=== PATIENT | male | born 1965 | race Caucasian/White ===

== ENCOUNTER → 2016-12-01 | Outpatient (CLI) | payer BC ==
[~2016-12-01] MED LIST: ASPCH81X PO; OMEP20CA59 PO; PROP10TA7 PO; SIMV10TA5 PO
--- NOTE | 2016-12-01 10:05 | DIAGNOSTIC IMAGING REPORT ---
RIGHT KNEE 4 VIEWS; LEFT KNEE 4 VIEWS CLINICAL HISTORY: Bilateral knee pain. FINDINGS: An AP standing view of both knees, a sunrise view of both knees, a tunnel view of both knees, with lateral views of the right and left knee are compared to radiographs of the right knee dated 09/04/2015. The skeletal structures appear osteopenic. No fracture is seen. Right knee: There is mild to moderate tricompartmental degenerative joint space narrowing, greatest in the medial and patellofemoral compartments. There are tiny marginal osteophytes as well as patellar enthesophytes. No osteochondral defect is identified on the tunnel view. There is a new sclerotic lesion within the medial tibial metaphysis which measures up to 4.2 cm. No joint effusion is identified. Mild prepatellar soft soft tissue swelling is noted. A calcified fabella is incidentally noted. Left knee: There is mild tricompartmental degenerative joint space narrowing of the left knee, greatest the medial and patellofemoral compartments. There are tiny patellar enthesophytes. No osteochondral defect is seen on the tunnel view. There is no joint effusion. The overlying soft tissues are within normal limits. IMPRESSION: 1. No acute bony abnormality is seen in either knee. 2. Mild arthritic change as above, right greater than left. 3. There is a new 4.1 cm sclerotic lesion in the right proximal tibial metaphysis. This is indeterminant but new from 09/04/2015. This is likely on a postoperative basis. Clinical correlation will be essential. Electronically signed by: Low Dc M.D. 12/01/2016 10:03 AM Dictated Date/Time: 12/01/2016 9:59 AM
== END | disposition home or self-care (01) ==
LOC: C.RDSM 07:25
PROVIDERS: ATTEND Physical Medicine & Rehabilitation Sports Medicine
DX: R52 Pain, unspecified (principal); M89.9 Disorder of bone, unspecified

== ENCOUNTER → 2017-02-26 | Outpatient (CLI) | payer OTHER, BC ==
--- NOTE | 2017-02-26 11:37 | DIAGNOSTIC IMAGING REPORT ---
PA CHEST WITH LEFT-SIDED RIB SERIES CLINICAL HISTORY: Left chest wall pain. FINDINGS: A PA chest radiograph with 4 additional views from a left-sided rib series are obtained. No prior studies are available for comparison at the time of dictation. The cardiomediastinal silhouette is unremarkable. There is mild bibasilar atelectasis. The lungs and pleural spaces are otherwise clear. No pneumothorax is seen. Question nondistracted left anterior seventh and eighth rib fractures on the rib series. The remainder of the bony thorax is grossly intact. IMPRESSION: 1. The lungs are clear. 2. Minimal contour irregularity is suggested in the left anterior 7th and 8th ribs on the rib series. Nondistracted fractures are not excluded. Correlate clinically for point tenderness. Electronically signed by: Low Dc M.D. 02/26/2017 11:35 AM Dictated Date/Time: 02/26/2017 11:32 AM
== END | disposition home or self-care (01) ==
LOC: C.RAD1850 11:11
PROVIDERS: ATTEND Nurse Practitioner Adult Health
DX: R07.81 Pleurodynia (principal)

== ENCOUNTER → 2017-10-22 | Outpatient (CLI) | payer OTHER | END | disposition home or self-care (01) | LOC: C.RAD 10:04 | DX: R05 Cough (principal) ==